=== PATIENT | male | born 1985 | race Asian ===

== ENCOUNTER 2018-04-05 02:13 | Emergency (ER) | payer BC ==
[~2018-04-05] VITALS: Ht 172.7 cm; Wt 86.2 kg
[2018-04-05] MEDS ORDERED: KEFLEX500 MG PO (03:58)
[2018-04-05 04:15] VITALS: BP 124/80
== END 2018-04-05 04:23 | disposition home or self-care (01) ==
LOC: EME 02:13 → EXP 02:13
PROC: 0HQKXZZ Repair Right Lower Leg Skin, External Approach (ICD-10-PCS; principal; 2018-04-05)
DX: S81.811A Laceration without foreign body, right lower leg, initial encounter (principal); W22.8XXA Striking against or struck by other objects, initial encounter; Y93.51 Activity, roller skating (inline) and skateboarding; Z72.0 Tobacco use
CPT/HCPCS: 73590; 99281; 99283